=== PATIENT | male | born 1970 | race Caucasian/White ===

== ENCOUNTER 2016-11-20 17:09 | Inpatient (IN) | payer BC ==
--- NOTE | ~2016-11-20 | CN ---
Consultation Report [place] [place]. [address] NAME: NAVEEN LEVINE : 74 STATUS : ADM IN PAT#: [id number] AGE: 46 ADM/REG DATE : 11/20/16 MR#: [id number] REPORT SERV DATE: 11/22/16 DICTATED BY: NOLBERTO MASSEY DATE: 11/22/16 REPORT STATUS : Draft TRANSCRIBED BY: MODL DATE: 11/22/16 CONSULTATION DATE OF CONSULTATION: 11/22/2016 REASON FOR CONSULTATION: Blood sugar management. HISTORY OF PRESENT ILLNESS: Mr. Levine is a 46-year-old male, here for myocardial infarction, CHF, and arrhythmia. He has no known previous history of diabetes, although he does have diabetes in the family, specifically his father. The patient is noted to have blood sugars in excess of 300 on multiple draws here. There is no A1c available yet. He has been treated with sliding scale. Blood sugars continue to remain elevated. He is, otherwise, without complaints. PAST MEDICAL HISTORY: As covered above. PAST SURGICAL HISTORY: Not obtained. CURRENT MEDICATIONS: Reviewed in his chart. ALLERGIES: NONE. FAMILY HISTORY: Father with diabetes. SOCIAL HISTORY: Not obtained. REVIEW OF SYSTEMS: He is currently not having chest pain, palpitations, shortness of breath, nausea, or vomiting. PHYSICAL EXAMINATION: VITAL SIGNS: BP is 95/57, pulse is 104, saturation 96%, temperature is 98.8. GENERAL: He is awake, alert, oriented, in no acute distress. HEENT: Normocephalic, atraumatic. Sclerae are nonicteric. NECK: Supple. HEART: Regular rate and rhythm. LUNGS: Show good breath sounds bilaterally. ABDOMEN: Nontender and nondistended. NEUROLOGIC: Grossly nonfocal. LABORATORY DATA: Sodium 131, potassium 3.5, chloride 97, CO2 of 20, BUN and creatinine of 28 and 1.38, glucose is 334. White count 14.2, hemoglobin and hematocrit 15 and 43, platelets are 188. Consultation Report [address] [place]. [address] NAME: NAVEEN LEVINE : 74 STATUS : ADM IN PAT#: [id number] AGE: 46 ADM/REG DATE : 11/20/16 MR#: [id number] REPORT SERV DATE: 11/22/16 DICTATED BY: NOLBERTO MASSEY DATE: 11/22/16 REPORT STATUS : Draft TRANSCRIBED BY: VINITA DATE: 11/22/16 ASSESSMENT: Diabetes mellitus. PLAN: We will start long-acting insulin in addition to a sliding scale. We will ask the nurse educator to see him. We will draw an A1c. Change his diet to 2000 ADA. We will continue to follow. Thank you for the consultation. ISAIAHF/VINITA Nolberto Massey M.D. / [id number] CC: Chase Huynh III, M.D., [facility], [facility]
--- NOTE | ~2016-11-20 | HP ---
History And Physical [facility] [address] [place]. [address] NAME: ADEOLA LEVINE : 74 STATUS : ADM IN PAT#: [id number] AGE: 46 ADM/REG DATE : 11/20/16 MR#: [id number] REPORT SERV DATE: 11/22/16 DICTATED BY: DEBORAH HUYNH III DATE: 11/22/16 REPORT STATUS : Draft TRANSCRIBED BY: VINITA DATE: 11/22/16 DATE OF ADMISSION: 11/20/2016 HISTORY OF PRESENT ILLNESS: Mr. Adeola Levine is a 46-year-old white male from [place], [place] admitted to [facility] for treatment of an acute anterolateral ST segment elevation myocardial infarction-acute coronary syndrome. The patient was told that he had a cardiac murmur in the 8th grade. The patient was evaluated by Dr. Pearson at [facility]. The patient was told that he had a bicuspid aortic valve. The patient did well until approximately three weeks prior to this admission. At that time, the patient had the onset of dull "burning "substernal and epigastric pain without radiation. The patient noted an increase in the frequency of his pain until approximately 12 hours prior to admission. At that time, the patient's chest pain became constant. The patient's chest pain was accompanied by dyspnea, diaphoresis, and occasional nausea. The patient denied any associated vomiting. The patient's chest pain was exacerbated by emotional upset. The patient denied relation to exertion, respiration, and oral intake. The patient stated that his chest pain was partially relieved by sitting up and naproxen. The patient denied relief with antacids. The patient denied trying sublingual nitroglycerin or a heating pad. The patient has no history of migraine headaches or symptoms suggestive of Raynaud's phenomenon. The patient was subsequently seen by the emergency medical service. A 12-lead electrocardiogram demonstrated findings consistent with an acute anterolateral ST segment elevation myocardial infarction. The patient was subsequently admitted for emergent cardiac catheterization and consideration of revascularization. The patient denied dyspnea on exertion, orthopnea, paroxysmal nocturnal dyspnea, trepopnea, platypnea, sacral edema, pedal edema, palpitations, and syncope. The patient has no history of rheumatic fever. The patient denied symptoms suggestive of hip claudication. The patient's documented coronary artery disease risk factors include obesity and diabetes mellitus. PAST MEDICAL HISTORY: 1. Obesity. 2. Type II diabetes mellitus. 3. Asthma. OPERATIVE PROCEDURES: None. ALLERGIES: NONE. MEDICATIONS: None. FAMILY HISTORY: Positive for hypertension, myocardial infarction, diabetes mellitus, cancer, and arthritis. Negative for stroke, seizures, kidney disease, liver disease, anemia, and mental illness. SOCIAL HISTORY: The patient denied any history of tobacco use. The patient discontinued History And Physical [address] [address] NAME: ADEOLA LEVINE : 74 STATUS : ADM IN PAT#: [id number] AGE: 46 ADM/REG DATE : 11/20/16 MR#: [id number] REPORT SERV DATE: 11/22/16 DICTATED BY: DEBORAH HUYNH III DATE: 11/22/16 REPORT STATUS : Draft TRANSCRIBED BY: VINITA DATE: 11/22/16 alcohol use approximately 10 years prior to this admission. PHYSICAL EXAMINATION: GENERAL: Physical examination demonstrated an alert, diaphoretic, obese middle-aged white male, in no acute distress. VITAL SIGNS: Demonstrated a temperature of 98.5 orally, respiratory rate of 28 breaths per minute, and a blood pressure of 112/80 mmHg with a heart rate of 105 beats per minute. SKIN: Warm and moist. NECK: Supple and nontender. There was full range of motion without appreciable lymphadenopathy or thyromegaly. There was no jugular venous distention at 90 degrees. There were no carotid bruits. BACK: Examination of the back demonstrated no spinal or costovertebral angle tenderness. CHEST: Examination of the chest demonstrated bibasilar inspiratory crackles. There were no rhonchi, wheezes, or pleural rubs. There was symmetrical expansion of the chest. There was no use of the accessary muscles for respiration. CARDIAC: Cardiac examination demonstrated a nonpalpable apical impulse. There was a tachycardic rhythm and rate. There was no appreciable murmur, rub, gallop, or mid systolic click. There were no thrills or heaves. There was no appreciable hepatojugular reflux. ABDOMEN: Examination of the abdomen demonstrated that it was obese, soft, and protuberant. There was no appreciable hepatosplenomegaly or masses. Bowel sounds were intact. There were no abdominal or femoral bruits. EXTREMITIES: Examination of the extremities demonstrated that they were symmetrical. There was full range of motion without cyanosis, clubbing, or edema. Pulses were 2+ and equal at the radial and dorsalis pedis arteries. The femoral pulses were 1+ and equal. The posterior tibial pulses were trace to nonpalpable. ASSESSMENT: Mr. Adeola Levine is a 46-year-old white male with two other risk factors for coronary atherosclerotic disease (i.e. obesity, diabetes mellitus) and a known bicuspid aortic valve; who presents with an acute anterolateral ST segment elevation myocardial infarction-acute coronary syndrome approximately 12 hours after symptom onset. The patient is admitted for emergent cardiac catheterization and consideration of revascularization. Options, potential risks, and benefits of the procedure were discussed with the patient. The patient accepted these risks and wished to proceed. GERHARD/VINITA Deborah Huynh III, M.D., [facility] / [id number] CC: Deborah Huynh III, M.D., [facility]
--- NOTE | ~2016-11-20 | DS ---
Discharge Summary [facility] [address] [place]. [address] NAME: NAVEEN LEVINE : 74 STATUS : DIS IN PAT#: [id number] AGE: 46 ADM/REG DATE : 11/20/16 MR#: [id number] REPORT SERV DATE: 12/02/16 DICTATED BY: DEBORAH HUYNH III DATE: 12/01/16 REPORT STATUS : Draft TRANSCRIBED BY: VINITA DATE: 12/01/16 Data Collection from hospitalization DISCHARGE DIAGNOSES: 1. Acute anterolateral ST-elevation myocardial infarction. 2. Three-vessel coronary artery disease. 3. Ischemic cardiomyopathy. 4. New-onset atrial fibrillation - resolved. 5. Bicuspid aortic valve. 6. Type 2 diabetes. 7. Obesity. 8. Asthma. CONSULTATIONS: Gabe Bella M.D. PROCEDURES PERFORMED: Cardiac catheterization and percutaneous coronary intervention, 11/20/2016. DISCHARGE MEDICATIONS: Cordarone 200 mg twice a day, Eliquis 5 mg twice a day, aspirin 81 mg daily, Lipitor 80 mg at bedtime, Advil 200 mg daily as needed, NovoLog injection insulin 10 units subcutaneously before meals, Levemir FlexPen 30 units subcutaneously at bedtime, Prinivil 40 mg daily, Glucophage 500 mg with breakfast and supper, Toprol-XL 200 mg daily, Aleve 440 mg daily as needed, nitroglycerin 0.4 mg sublingually as needed, Aldactone 25 mg daily, and Brilinta 90 mg twice a day. CONDITION AT DISCHARGE: Stable. DISPOSITION: The patient was discharged home on a 2000-calorie diabetic/cardiac diet with activities as instructed. He will follow up with me two weeks following discharge. He was to establish a primary care physician as soon as possible. He will need prompt follow up regarding his diabetes. HOSPITAL COURSE: This is a 46-year-old man who presented to [facility] with acute anterolateral ST-segment elevation myocardial infarction - acute coronary syndrome. The patient was told that he had a cardiac murmur in the 8th grade. He had been evaluated by Dr. Obrien at [facility]. The patient was told that he had a bicuspid aortic valve. The patient did well until approximately three weeks prior to admission. At that time, he had the onset of a dull burning substernal and epigastric pain without radiation. He noted an increase in the frequency of his pain until approximately 12 hours prior to admission. At that time, his chest pain became constant. His chest pain was accompanied by dyspnea, diaphoresis, and occasional nausea. He denied any associated vomiting. His chest pain was exacerbated by emotional upset. He denies any relation to exertion, respiration, or oral intake. He said that his chest pain was partially relieved by sitting up and with naproxen. He denied any relief with antacids. He denied trying sublingual nitroglycerin or heating pad. He was subsequently seen by the emergency medical services. A 12-lead electrocardiogram demonstrated findings consistent with acute anterolateral ST-segment elevation myocardial infarction. It was felt that he would need to undergo emergent cardiac catheterization and possible revascularization. He was admitted to the hospital at this Discharge [address] [address] NAME: NAVEEN LEVINE : 74 STATUS : DIS IN PAT#: [id number] AGE: 46 ADM/REG DATE : 11/20/16 MR#: [id number] REPORT SERV DATE: 12/02/16 DICTATED BY: DEBORAH HUYNH III DATE: 12/01/16 REPORT STATUS : Draft TRANSCRIBED BY: VINITA DATE: 12/01/16 time for further evaluation and treatment. Upon admission, he was taken to the cardiac labor crew supervisor where he underwent the above-mentioned procedure. He tolerated this well, and there were no complications. The following day, he had some chest soreness. He had no palpitations or dyspnea. Metoprolol was increased. Sliding scale insulin was increased to level 3. IV diltiazem was being given as per protocol. Echocardiogram was requested. He had the new onset of atrial fibrillation with rapid ventricular response. An echocardiogram was performed. On the , he was seen by Dr. Gabe Bella regarding blood sugar management. The patient has no known previous history of diabetes. He does have diabetes in his family, specifically his ulcer. He has been noted to have blood sugars in excess of 300 on multiple draws here. Hemoglobin A1c was going to be obtained. He had been treated with sliding scale insulin. His blood sugars continue to remain elevated. White count was 14.2. We were going to start long-acting insulin in addition to sliding scale. We were going to ask the associate financial advisor to see him. He is going to be placed on a 2000-calorie diabetic diet. On 11/23/2016, he had no chest pain, palpitations, or dyspnea. He was in a sinus rhythm at this time. Amiodarone was adjusted. He was transferred to telemetry. His new onset of atrial fibrillation had resolved. Discharge planning was performed. On 11/24/2016, he was feeling okay. He had no new complaints. He was eating well. Insulin was adjusted. Metformin was added. Eliquis was being provided. He was in a sinus rhythm. He had no dyspnea, palpitations, or chest pain. A Life Vest was going to be requested. He underwent diabetes education. Discharge instructions were given. Due to his improved and stable condition, he was discharged home with the above-stated instructions. Information collected by: Melita Mccoy I submit the above information as my discharge summary. TG/MODL Deborah Huynh III, M.D., [facility], [facility] / [id number] CC: Deborah Huynh III, M.D., [facility]
--- NOTE | ~2016-11-20 | OP ---
Record Of Operation [facility] [address] [place]. [address] NAME: ADEOLA LEVINE : 74 STATUS : DIS IN PAT#: [id number] AGE: 46 ADM/REG DATE : 11/20/16 MR#: [id number] REPORT SERV DATE: 12/03/16 DICTATED BY: DEBORAH HUYNH III DATE: 12/03/16 REPORT STATUS : Draft TRANSCRIBED BY: MODL DATE: 12/03/16 DATE OF PROCEDURE: 11/20/2016 PROCEDURAL FACILITY SECURITY OFFICER: Dr. Deborah Huynh. INDICATION: Mr. Adeola Levine is a 46-year-old white male with three other risk factors for coronary atherosclerotic disease (i.e., obesity, dyslipidemia, diabetes mellitus) and a known bicuspid aortic valve; who presented with an acute anterolateral ST-segment elevation myocardial infarction-acute coronary syndrome approximately 12 hours after symptom onset. The patient was referred for emergent cardiac catheterization and consideration of revascularization. Options, potential risks and benefits of the procedure were discussed with the patient. The patient accepted these risks and wished to proceed. PROCEDURES: 1. Left heart catheterization. 2. Left ventriculogram. 3. Left and right coronary angiograms. 4. Percutaneous transluminal coronary angioplasty with implantation of a 3.5 mm, 24 mm length [employer] Synergy EES in the mid portion of the left anterior descending coronary artery. 5. Limited right iliofemoral angiogram. CONTRAST: Iopamidol 250 mL. MEDICATIONS: 1. Midazolam 2 mg intravenously, in divided doses. 2. Sublimaze 100 mcg intravenously, in divided doses. 3. Heparin 4000 internation units intravenously. 4. Bivalirudin with a loading dose of 0.75 mg/kg, followed by standard intravenous infusion at 1.75 mg/kg per hour. 5. Regular insulin 5 units intravenously. 6. Labetalol 40 mg intravenously. 7. Ticagrelor 180 mg orally. EQUIPMENT: 1. 4-Kosovan Cook micropuncture with stiffened cannula (RFA). 2. 0.035 inch PTFE coated, 150 cm, 3 mm J Pentalum Technologiesald guidewire. 3. 6-Kosovan, 11 cm Cordis Alyse MS sheath. 4. 6-Kosovan, 100 cm #4 curve left coronary artery Samira catheter. 5. 6-Kosovan, 100 cm #4 curve right coronary artery Samira catheter. 6. 6-Kosovan XB LAD #4 Cordis [place] Brite-tip guiding catheter. 7. 0.014 inch Hi-Torque floppy, 190 cm, moderate support Barr Whisper steerable guidewire. 8. 3.5 mm, 15 mm length [employer] Emerge MR balloon dilatation catheter (14 atmospheres for a duration of 20 seconds). 9. 3.5 mm, 24 mm length [employer] Synergy MR stent deployment system (20 Record Of Operation [place] [id number] [place]. [address] NAME: ADEOLA LEVINE : 74 STATUS : DIS IN PAT#: [id number] AGE: 46 ADM/REG DATE : 11/20/16 MR#: [id number] REPORT SERV DATE: 12/03/16 DICTATED BY: DEBORAH HUYNH III DATE: 12/03/16 REPORT STATUS : Draft TRANSCRIBED BY: MODPamela DATE: 12/03/16 atmospheres for a duration of 60 seconds). 10.6-Kosovan #4 curve right coronary artery Samira Cordis [place] Brite-tip guiding catheter with side holes. 11.6-Kosovan, 110 cm pigtail-145 catheter (45 mL at 13 mL per second). 12.6-Kosovan Barr Perclose ProGlide vascular closure device. COMPLICATIONS: None. RADIATION DOSE: 2062 mGy. ESTIMATED BLOOD LOSS: 50 mL. HEMODYNAMIC DATA: Prior to left ventriculography, the central aortic pressure was 135/100 mmHg. The left ventricular pressure was 135/38 mmHg. ANGIOGRAPHIC DATA: Single plane 30-degree VALDERRAMA left ventriculography demonstrated that the left ventricle was moderate to severely enlarged. There was anterolateral akinesis, apical akinesis to dyskinesis, and distal diaphragmatic akinesis. Global left ventricular systolic function was moderate to severely reduced. There was no mitral regurgitation. The left main coronary artery was a large caliber, long, normal vessel. The left main coronary artery bifurcated into a large caliber left anterior descending and a large caliber, dominant left circumflex coronary arteries. The left anterior descending coronary artery gave rise to one major septal throw out clerk and one small to medium caliber diagonal branch, before being totally occluded in its midportion. The left anterior descending coronary artery was diffusely irregular. There was a radiolucent, irregular 25% to 40% stenosis involving the origin of the diagonal branch from the proximal portion of the left anterior descending coronary artery. The left circumflex coronary artery was a large caliber, dominant vessel. The left circumflex coronary artery gave rise to a small caliber first obtuse marginal branch, medium caliber second obtuse marginal branch, medium to large caliber third obtuse marginal branch, large caliber first posterolateral segment branch, small to medium caliber second posterolateral segment branch, and a medium caliber posterior descending coronary artery. The left circumflex coronary artery was diffusely irregular. There was an eccentric 50% stenosis involving the distal portion of the left circumflex coronary artery, just distal to the origin of the third obtuse marginal branch. There was a long, irregular 50% to 75% stenosis involving the distal portion of the left circumflex coronary artery, at the origins of the second posterolateral segment branch and posterior descending coronary arteries. The remainder of the left circumflex coronary artery was free of angiographically significant obstructive epicardial coronary artery disease. The right coronary artery was a small caliber, nondominant vessel. The right coronary artery gave rise to a conus branch, sinoatrial branch, small caliber first right ventricular branch, small caliber second right ventricular branch, and a medium caliber acute marginal branch, before terminating prior to the crux. The right coronary artery was diffusely Record Of Operation [address] [address] NAME: ADEOLA LEVINE : 74 STATUS : DIS IN PAT#: [id number] AGE: 46 ADM/REG DATE : 11/20/16 MR#: [id number] REPORT SERV DATE: 12/03/16 DICTATED BY: DEBORAH HUYNH III DATE: 12/03/16 REPORT STATUS : Draft TRANSCRIBED BY: VINITA DATE: 12/03/16 irregular. There was an irregular, radiolucent 50% stenosis involving the proximal portion of the right coronary artery, at the origin of the second right ventricular branch. There was a radiolucent, concentric 90% stenosis involving the mid portion of the right coronary artery, just proximal to the origin of the acute marginal branch. The remainder of the right coronary artery was free of angiographically significant obstructive epicardial coronary artery disease. Following balloon dilatation and implantation of a 3.5 mm, 24 mm length [employer] Synergy EES in the mid portion of the left anterior descending coronary artery, selective injections of the left coronary artery demonstrated reduction in the stenosis to approximately 0%. There was no intraluminal radiolucency or irregularity. There was ULISSES grade III perfusion of the distal vessel. Limited right iliofemoral angiography demonstrated luminal irregularities of the distal external iliac and common femoral arteries. The sheath insertion site was located in the common femoral artery. PATIENT DISPOSITION: Coronary Care Unit. CONCLUSIONS: 1. Anterolateral akinesis, apical akinesis to dyskinesis, and distal diaphragmatic akinesis; with a moderate to severe reduction in global left ventricular systolic function. 2. Elevated left ventricular end-diastolic pressure. 3. Angiographically significant three-vessel coronary artery disease, involving the mid portion of the left anterior descending, distal portion of the left circumflex and proximal portion of the right coronary arteries. 4. Left dominant coronary anatomy. 5. Successful percutaneous transluminal coronary angioplasty with implantation of a 3.5 mm, 24 mm length [employer] Synergy EES in the mid portion of the left anterior descending coronary artery, with reduction in the stenosis to approximately 0% and ULISSES grade III perfusion of the distal vessel. RECOMMENDATIONS: Aspirin for life, ticagrelor for 12 months, metoprolol, ramipril, consider eplerenone, high-intensity atorvastatin, echocardiogram, consider LifeVest and staged PCI of the distal portion of the left circumflex coronary artery. /VINITA Deborah Huynh III, M.D., [facility] / [id number] CC: Record Of Operation [address] [address] NAME: ADEOLA LEVINE : 74 STATUS : DIS IN PAT#: [id number] AGE: 46 ADM/REG DATE : 11/20/16 MR#: [id number] REPORT SERV DATE: 12/03/16 DICTATED BY: DEBORAH HUYNH III DATE: 12/03/16 REPORT STATUS : Draft TRANSCRIBED BY: MODL DATE: 12/03/16 Deborah Huynh III, M.D., [facility]
[2016-11-20 18:07] LABS: BASOPHILS 0.2 %; BASOPHILS ABSOLUTE 0.02 10/3/uL (0.0-0.16); EOSINOPHILS 0.1 %; EOSINOPHILS ABSOLUTE 0.01 10/3/uL (0.0-0.53); HEMATOCRIT 45.2 % (40.0-51.0); HEMOGLOBIN 16.2 g/dL (13.6-17.8); IMMATURE GRANULOCYTES 0.3 %; IMMATURE GRANULOCYTES ABSOLUTE 0.03 10/3/uL (0.0-0.11); LYMPHOCYTES 15.1 %; LYMPHOCYTES ABSOLUTE 1.81 10/3/uL (0.67-4.30); MEAN CORPUS HGB CONC 35.8 g/dL (32.0-36.0); MEAN CORPUSCULAR HEMOGLOB 29.5 pg (26.0-34.0); MEAN CORPUSCULAR VOLUME 82.3 fL (80-100); MEAN PLATELET VOLUME 11.3 fL (9.2-13.0); MONOCYTES 7.9 %; MONOCYTES ABSOLUTE 0.95 10/3/uL (0.21-1.20); NEUTROPHILS 76.4 %; NEUTROPHILS ABSOLUTE 9.18 10/3/uL (2.02-8.40); PLATELET COUNT 222 10/3/uL (150-400); RBC DISTRIBUTION WIDTH 12.8 % (12.0-16.0); RED CELL COUNT 5.49 10/6/uL (4.7-6.1)
[2016-11-20 18:08] LABS: MANUAL DIFF NO %
[2016-11-20 18:18] LABS: INTERNATIONAL NORMAL RATI 1.1 UNITS (-); PROTIME (NOT ORD) 14.2 SEC (12.0-14.5)
[2016-11-20 18:19] LABS: PARTIAL THROMBO TIME 105.2 SEC (22.5-37.2)
[2016-11-20 18:23] LABS: BUN (BLOOD UREA NITROGEN) 10 MG/DL (6-23); CHLORIDE, SERUM 98 MMOL/L (96-112); CO2 (CARBON DIOXIDE) 19 MMOL/L (24-34); GFR AFRICAN AMERICAN 94 ML/MIN (>=60); GFR NON AFRICAN AMERICAN 81 ML/MIN (>=60); SODIUM, SERUM 133 MMOL/L (135-148)
[2016-11-20 18:26] LABS: CHEST PAIN PROFILE TAT 0 Hrs 27 Mins; GLUCOSE, SERUM 408 MG/DL (60-99); POTASSIUM, SERUM 3.5 MMOL/L (3.5-5.3); TROPONIN I 9.32 NG/ML (<0.05)
[2016-11-20] MEDS ORDERED: ALEVE220 MG PO (20:05)
[2016-11-20] MEDS ORDERED: ADVIL PO (20:05)
[2016-11-20 20:34] LABS: BASOPHILS 0.2 %; BASOPHILS ABSOLUTE 0.03 10/3/uL (0.0-0.16); EOSINOPHILS 0.1 %; EOSINOPHILS ABSOLUTE 0.01 10/3/uL (0.0-0.53); HEMATOCRIT 46.1 % (40.0-51.0); HEMOGLOBIN 16.3 g/dL (13.6-17.8); IMMATURE GRANULOCYTES 0.2 %; IMMATURE GRANULOCYTES ABSOLUTE 0.04 10/3/uL (0.0-0.11); LYMPHOCYTES 12.8 %; MEAN CORPUS HGB CONC 35.4 g/dL (32.0-36.0); MEAN CORPUSCULAR HEMOGLOB 29.3 pg (26.0-34.0); MEAN CORPUSCULAR VOLUME 82.9 fL (80-100); MEAN PLATELET VOLUME 11.3 fL (9.2-13.0); MONOCYTES 8.2 %; MONOCYTES ABSOLUTE 1.35 10/3/uL (0.21-1.20); NEUTROPHILS 78.5 %; NEUTROPHILS ABSOLUTE 12.86 10/3/uL (2.02-8.40); PLATELET COUNT 248 10/3/uL (150-400); RBC DISTRIBUTION WIDTH 12.9 % (12.0-16.0); RED CELL COUNT 5.56 10/6/uL (4.7-6.1); WHITE BLOOD CELLS 16.4 10/3/uL (4.5-10.5)
[2016-11-20 20:36] LABS: MANUAL DIFF NO %
[2016-11-20 23:21] LABS: CKMB INDEX (NOT ORD) 4.2
[2016-11-21 04:10] LABS: BASOPHILS 0.1 %; BASOPHILS ABSOLUTE 0.01 10/3/uL (0.0-0.16); EOSINOPHILS 0.1 %; EOSINOPHILS ABSOLUTE 0.01 10/3/uL (0.0-0.53); HEMATOCRIT 46.5 % (40.0-51.0); IMMATURE GRANULOCYTES 0.3 %; IMMATURE GRANULOCYTES ABSOLUTE 0.04 10/3/uL (0.0-0.11); LYMPHOCYTES 9.8 %; LYMPHOCYTES ABSOLUTE 1.46 10/3/uL (0.67-4.30); MEAN CORPUS HGB CONC 34.4 g/dL (32.0-36.0); MEAN CORPUSCULAR HEMOGLOB 29.3 pg (26.0-34.0); MEAN PLATELET VOLUME 11.4 fL (9.2-13.0); MONOCYTES 9.4 %; NEUTROPHILS 80.3 %; NEUTROPHILS ABSOLUTE 11.91 10/3/uL (2.02-8.40); PLATELET COUNT 220 10/3/uL (150-400); RBC DISTRIBUTION WIDTH 13.1 % (12.0-16.0); RED CELL COUNT 5.47 10/6/uL (4.7-6.1); WHITE BLOOD CELLS 14.8 10/3/uL (4.5-10.5)
[2016-11-21 04:11] LABS: MANUAL DIFF NO %
[2016-11-21 05:08] LABS: BUN (BLOOD UREA NITROGEN) 8 MG/DL (6-23); CALCIUM, SERUM 8.9 MG/DL (8.5-10.4); CHLORIDE, SERUM 100 MMOL/L (96-112); CO2 (CARBON DIOXIDE) 21 MMOL/L (24-34); CREATININE 0.96 MG/DL (0.70-1.30); GFR AFRICAN AMERICAN 111 ML/MIN (>=60); GFR NON AFRICAN AMERICAN 96 ML/MIN (>=60); SODIUM, SERUM 136 MMOL/L (135-148)
[2016-11-21 05:15] LABS: CPK (IF ELEVATED MB BANDS) 3854 U/L (0-200); GLUCOSE, SERUM 297 MG/DL (60-99); POTASSIUM, SERUM 3.9 MMOL/L (3.5-5.3)
[2016-11-21 06:09] LABS: CKMB INDEX (NOT ORD) 3.7
[2016-11-21 14:00] LABS: CKMB INDEX (NOT ORD) 3.1
[2016-11-22 07:24] LABS: BASOPHILS 0.1 %; BASOPHILS ABSOLUTE 0.02 10/3/uL (0.0-0.16); EOSINOPHILS 0.1 %; EOSINOPHILS ABSOLUTE 0.01 10/3/uL (0.0-0.53); HEMATOCRIT 43.2 % (40.0-51.0); IMMATURE GRANULOCYTES 0.4 %; IMMATURE GRANULOCYTES ABSOLUTE 0.06 10/3/uL (0.0-0.11); LYMPHOCYTES 11.2 %; MEAN CORPUS HGB CONC 34.7 g/dL (32.0-36.0); MEAN CORPUSCULAR HEMOGLOB 30.4 pg (26.0-34.0); MEAN PLATELET VOLUME 11.1 fL (9.2-13.0); MONOCYTES ABSOLUTE 1.43 10/3/uL (0.21-1.20); NEUTROPHILS 78.2 %; NEUTROPHILS ABSOLUTE 11.12 10/3/uL (2.02-8.40); PLATELET COUNT 188 10/3/uL (150-400); RBC DISTRIBUTION WIDTH 13.2 % (12.0-16.0); RED CELL COUNT 4.93 10/6/uL (4.7-6.1); WHITE BLOOD CELLS 14.2 10/3/uL (4.5-10.5)
[2016-11-22 07:26] LABS: MANUAL DIFF NO %; MEAN CORPUSCULAR VOLUME 87.6 fL (80-100)
[2016-11-22 08:31] LABS: CALCIUM, SERUM 9.3 MG/DL (8.5-10.4); CHLORIDE, SERUM 97 MMOL/L (96-112); CO2 (CARBON DIOXIDE) 20 MMOL/L (24-34); CREATININE 1.38 MG/DL (0.70-1.30); GFR AFRICAN AMERICAN 72 ML/MIN (>=60); GFR NON AFRICAN AMERICAN 62 ML/MIN (>=60); GLUCOSE, SERUM 334 MG/DL (60-99); POTASSIUM, SERUM 3.5 MMOL/L (3.5-5.3); SODIUM, SERUM 131 MMOL/L (135-148)
[2016-11-22 08:32] LABS: BUN (BLOOD UREA NITROGEN) 28 MG/DL (6-23)
[2016-11-23 04:25] LABS: BASOPHILS 0.2 %; BASOPHILS ABSOLUTE 0.02 10/3/uL (0.0-0.16); EOSINOPHILS 0.3 %; EOSINOPHILS ABSOLUTE 0.04 10/3/uL (0.0-0.53); HEMOGLOBIN 14.4 g/dL (13.6-17.8); IMMATURE GRANULOCYTES 0.4 %; IMMATURE GRANULOCYTES ABSOLUTE 0.05 10/3/uL (0.0-0.11); LYMPHOCYTES 13.1 %; LYMPHOCYTES ABSOLUTE 1.68 10/3/uL (0.67-4.30); MEAN CORPUS HGB CONC 33.5 g/dL (32.0-36.0); MEAN CORPUSCULAR VOLUME 86.7 fL (80-100); MEAN PLATELET VOLUME 11.2 fL (9.2-13.0); MONOCYTES 8.8 %; MONOCYTES ABSOLUTE 1.13 10/3/uL (0.21-1.20); NEUTROPHILS 77.2 %; NEUTROPHILS ABSOLUTE 9.92 10/3/uL (2.02-8.40); PLATELET COUNT 238 10/3/uL (150-400); RBC DISTRIBUTION WIDTH 13.2 % (12.0-16.0); RED CELL COUNT 4.96 10/6/uL (4.7-6.1); WHITE BLOOD CELLS 12.8 10/3/uL (4.5-10.5)
[2016-11-23 04:26] LABS: MANUAL DIFF NO %
[2016-11-23 04:30] LABS: BUN (BLOOD UREA NITROGEN) 29 MG/DL (6-23); CALCIUM, SERUM 9.4 MG/DL (8.5-10.4); CHLORIDE, SERUM 98 MMOL/L (96-112); CO2 (CARBON DIOXIDE) 23 MMOL/L (24-34); CREATININE 0.95 MG/DL (0.70-1.30); GFR AFRICAN AMERICAN 112 ML/MIN (>=60); GFR NON AFRICAN AMERICAN 97 ML/MIN (>=60); SODIUM, SERUM 133 MMOL/L (135-148)
[2016-11-23 04:42] LABS: GLUCOSE, SERUM 240 MG/DL (60-99)
[2016-11-24 08:13] LABS: BASOPHILS 0.2 %; BASOPHILS ABSOLUTE 0.02 10/3/uL (0.0-0.16); EOSINOPHILS 1.3 %; EOSINOPHILS ABSOLUTE 0.15 10/3/uL (0.0-0.53); HEMATOCRIT 43.6 % (40.0-51.0); HEMOGLOBIN 14.6 g/dL (13.6-17.8); IMMATURE GRANULOCYTES 0.3 %; IMMATURE GRANULOCYTES ABSOLUTE 0.03 10/3/uL (0.0-0.11); LYMPHOCYTES 16.1 %; LYMPHOCYTES ABSOLUTE 1.79 10/3/uL (0.67-4.30); MEAN CORPUS HGB CONC 33.5 g/dL (32.0-36.0); MEAN CORPUSCULAR HEMOGLOB 28.9 pg (26.0-34.0); MEAN CORPUSCULAR VOLUME 86.3 fL (80-100); MEAN PLATELET VOLUME 10.8 fL (9.2-13.0); MONOCYTES 8.7 %; MONOCYTES ABSOLUTE 0.97 10/3/uL (0.21-1.20); NEUTROPHILS 73.4 %; NEUTROPHILS ABSOLUTE 8.16 10/3/uL (2.02-8.40); PLATELET COUNT 289 10/3/uL (150-400); RBC DISTRIBUTION WIDTH 13.1 % (12.0-16.0); RED CELL COUNT 5.05 10/6/uL (4.7-6.1); WHITE BLOOD CELLS 11.1 10/3/uL (4.5-10.5)
[2016-11-24 08:20] LABS: MANUAL DIFF NO %
[2016-11-24 08:28] LABS: BUN (BLOOD UREA NITROGEN) 28 MG/DL (6-23); CALCIUM, SERUM 9.1 MG/DL (8.5-10.4); CHLORIDE, SERUM 101 MMOL/L (96-112); CO2 (CARBON DIOXIDE) 24 MMOL/L (24-34); CREATININE 1.17 MG/DL (0.70-1.30); GFR AFRICAN AMERICAN 87 ML/MIN (>=60); GFR NON AFRICAN AMERICAN 75 ML/MIN (>=60); GLUCOSE, SERUM 236 MG/DL (60-99); POTASSIUM, SERUM 3.1 MMOL/L (3.5-5.3); SODIUM, SERUM 138 MMOL/L (135-148)
[2016-11-24 12:39] LABS: BUN (BLOOD UREA NITROGEN) 29 MG/DL (6-23); CALCIUM, SERUM 9.5 MG/DL (8.5-10.4); CHLORIDE, SERUM 102 MMOL/L (96-112); CO2 (CARBON DIOXIDE) 25 MMOL/L (24-34); CREATININE 1.28 MG/DL (0.70-1.30); GFR AFRICAN AMERICAN 78 ML/MIN (>=60); GFR NON AFRICAN AMERICAN 68 ML/MIN (>=60); GLUCOSE, SERUM 247 MG/DL (60-99); POTASSIUM, SERUM 3.6 MMOL/L (3.5-5.3); SODIUM, SERUM 137 MMOL/L (135-148)
[2016-11-24 15:06] LABS: CREATININE 0.7 MG/DL (0.70-1.30)
[2016-11-24] MEDS ORDERED: ELIQUIS 5 MG TAB5 MG PO (17:51)
[2016-11-24] MEDS ORDERED: ASAB PO (17:52)
[2016-11-24] MEDS ORDERED: LIPITOR40 PO (17:53)
[2016-11-24] MEDS ORDERED: CORDARONE PO (17:54)
[2016-11-24] MEDS ORDERED: NOVOLOG SC (17:55)
[2016-11-24] MEDS ORDERED: PRIN20 PO (17:57)
[2016-11-24] MEDS ORDERED: BRILINTA90 MG PO (17:58)
[2016-11-24] MEDS ORDERED: SPIRO25 PO (17:58)
[2016-11-24] MEDS ORDERED: GLUCPH PO (17:59)
[2016-11-24] MEDS ORDERED: LEVEMFLXPN SC (18:00)
[2016-11-24] MEDS ORDERED: TOPROL XL200 MG PO (18:01)
[2016-11-24] MEDS ORDERED: NTG150 SL (18:03)
[2016-12-02] MEDS ORDERED: LANTUSCART SC (11:27)
== END 2016-11-24 19:14 | disposition home or self-care (01) | DRG 247 ==
LOC: SSU2 17:09 → CCU 19:07 → 6NO 11-23 18:02
PROVIDERS: Internal Medicine Cardiovascular Disease
PROC: 027034Z Dilation of Coronary Artery, One Artery with Drug-eluting Intraluminal Device, Percutaneous Approach (ICD-10-PCS; principal; 2016-11-20)
PROC: 4A023N7 Measurement of Cardiac Sampling and Pressure, Left Heart, Percutaneous Approach (ICD-10-PCS; 2016-11-20)
PROC: B2111ZZ Fluoroscopy of Multiple Coronary Arteries using Low Osmolar Contrast (ICD-10-PCS; 2016-11-20)
PROC: B2151ZZ Fluoroscopy of Left Heart using Low Osmolar Contrast (ICD-10-PCS; 2016-11-20)
DX: I21.09 ST elevation (STEMI) myocardial infarction involving other coronary artery of anterior wall (principal); E87.1 Hypo-osmolality and hyponatremia; Q23.1 Congenital insufficiency of aortic valve; Z68.41 Body mass index [BMI] 40.0-44.9, adult; E11.9 Type 2 diabetes mellitus without complications; E66.9 Obesity, unspecified; E78.5 Hyperlipidemia, unspecified; I48.91 Unspecified atrial fibrillation; I25.5 Ischemic cardiomyopathy; E87.6 Hypokalemia; I25.10 Atherosclerotic heart disease of native coronary artery without angina pectoris; Z82.49 Family history of ischemic heart disease and other diseases of the circulatory system; Z83.3 Family history of diabetes mellitus
CPT/HCPCS: 71010; 80048; 82550; 82553; 82962; 83036; 83735; 84132; 84295; 84439; 84443; 84484; 85025; 85610; 85730; 93005; 93458; A9270-GY; C1725; C1760; C1769; C1874; C1887; C1894; C8929; C9606; J0282; J0583; J2250; J3010; Q9957; Q9967

== ENCOUNTER 2016-12-03 10:29 | Observation (INO) | payer BC ==
--- NOTE | ~2016-12-03 | OP ---
Record Of Operation [facility] [address] [place]. [address] NAME: ADEOLA LEVINE : 74 STATUS : DIS Thea PAT#: [id number] AGE: 46 ADM/REG DATE : 12/03/16 MR#: [id number] REPORT SERV DATE: 12/15/16 DICTATED BY: DEBORAH HUYNH III DATE: 12/15/16 REPORT STATUS : Draft TRANSCRIBED BY: MODL DATE: 12/15/16 DATE OF PROCEDURE: 12/03/2016 REFERRING PHYSICIAN: None. PROCEDURAL TOMATO GRADER: Deborah Huynh M.D., [facility], [facility]. ASSESSMENT: Mr. Adeola Levine is a 46-year-old white male with three other risk factors for coronary atherosclerotic disease (i.e., obesity, dyslipidemia, diabetes mellitus), known bicuspid aortic valve, status post anterolateral ST segment elevation myocardial infarction- acute coronary syndrome (11/20/2016), history of three-vessel coronary artery disease and status post PTCA with implantation of a 3.5 mm x 24 mm [employer] Synergy in the mid portion of the left anterior descending coronary artery (11/20/2016). The patient was referred for staged percutaneous coronary intervention with implantation of an Everolimus eluting stent in the distal portion of the left circumflex coronary artery. Options, potential risks and benefits of the procedure were discussed with the patient. The patient accepted these risks and wished to proceed. PROCEDURE DESCRIPTION: 1. Percutaneous transluminal coronary angioplasty with implantation of a 0.25 mm x 24 mm [employer] Synergy EES in the distal portion of the left circumflex coronary artery. 2. Limited right iliofemoral angiogram. CONTRAST: Iopamidol 170 mL. MEDICATIONS: 1. Midazolam 3 mg intravenously, in divided doses. 2. Sublimaze 150 mcg intravenously, in divided doses. 3. Heparin 8200 IU intravenously. 4. Ticagrelor 90 mg orally. EQUIPMENTS: 1. 4-[place] Cook micropuncture with stiffened cannula (RFA). 2. 0.035 inch PTFE coated, 150 cm, 3 mm J [employer] [place] guidewire. 3. 6-Croatian, 11 cm Cordis Alyse MS sheath. 4. 6-Croatian, XBC 3.5 Cordis [place] Brite-Tip guiding catheter. 5. 6-Croatian, XBC 4 Cordis [place] Brite-Tip guiding catheter. 6. 0.014 inch Hi-Torque floppy, 190 cm, extra-support Barr Whisper steerable guidewire. 7. 2.0 mm x 20 mm [employer] Emerge MR stent deployment system (14 atmospheres for a duration of 60 seconds). 8. 2.25 mm x 24 mm [employer] Synergy MR stent deployment system (18 atmospheres for a duration of 60 seconds). 9. 6-[place] Barr Perclose ProGlide vascular closure device. COMPLICATIONS: None. Record Of Operation [place] [id number] [facility] [place]. [address] NAME: ADEOLA LEVINE : 74 STATUS : DIS Thea PAT#: [id number] AGE: 46 ADM/REG DATE : 12/03/16 MR#: [id number] REPORT SERV DATE: 12/15/16 DICTATED BY: DEBORAH HUYNH III DATE: 12/15/16 REPORT STATUS : Draft TRANSCRIBED BY: VINITA DATE: 12/15/16 RADIATION DOSE: 2296 mGy. ESTIMATED BLOOD LOSS: 10 mL. I-STAT: 421 seconds. HEMODYNAMICS DATA: Prior to the injection of contrast, the central aortic pressure was 120/75 mmHg. ANGIOGRAPHIC DATA: Selective injections of the left coronary artery demonstrated a long, irregular, radiolucent 90% stenosis involving the distal portion of the dominant left circumflex coronary artery, at the origin of the second posterolateral segment branch and extending into the origin of the posterior descending coronary artery. Following balloon dilatation implantation of a 2.25 mm x 24 mm [employer] Synergy in the distal portion of the left circumflex coronary artery, selective injections of the left coronary artery demonstrated a reduction in the stenosis to approximately 0%. There was no intraluminal radiolucency or irregularity. There was ULISSES grade III perfusion of the distal vessel. Limited right iliofemoral angiography demonstrated luminal irregularities of the distal external iliac, and common femoral arteries. The sheath insertion site was located in the common femoral artery. PATIENT DISPOSITION: Coronary Short Stay Unit. CONCLUSION: Successful percutaneous transluminal coronary angioplasty with implantation of a 2.25 mm x 24 mm [employer] Synergy EES in the distal portion of the dominant left circumflex coronary artery, with reduction in the stenosis to approximately 0% and ULISSES grade III perfusion of the distal vessel. RECOMMENDATIONS: Aspirin for life, Ticagrelor for at least six months, metoprolol, ramipril, high-intensity atorvastatin, and cardiac rehabilitation program. GERHARD/MODL Deborah Huynh III, M.D., [facility] / [id number] CC: Deborah Huynh III, M.D., [facility]
[~2016-12-03 10:29] MED LIST: ADVIL PO; ALEVE220 MG PO; ASAB PO; BRILINTA90 MG PO; CORDARONE PO; ELIQUIS 5 MG TAB5 MG PO; GLUCPH PO; LANTUSCART SC; LEVEMFLXPN SC; LIPITOR40 PO; NOVOLOG SC; NTG150 SL; PRIN20 PO; SPIRO25 PO; TOPROL XL200 MG PO
[2016-12-03 11:26] LABS: BASOPHILS 0.3 %; BASOPHILS ABSOLUTE 0.03 10/3/uL (0.0-0.16); EOSINOPHILS 1.2 %; EOSINOPHILS ABSOLUTE 0.11 10/3/uL (0.0-0.53); HEMOGLOBIN 14.3 g/dL (13.6-17.8); IMMATURE GRANULOCYTES 0.5 %; IMMATURE GRANULOCYTES ABSOLUTE 0.05 10/3/uL (0.0-0.11); LYMPHOCYTES 29.8 %; LYMPHOCYTES ABSOLUTE 2.75 10/3/uL (0.67-4.30); MEAN CORPUS HGB CONC 33.3 g/dL (32.0-36.0); MEAN CORPUSCULAR HEMOGLOB 28.7 pg (26.0-34.0); MEAN CORPUSCULAR VOLUME 86.3 fL (80-100); MONOCYTES ABSOLUTE 0.55 10/3/uL (0.21-1.20); NEUTROPHILS 62.2 %; NEUTROPHILS ABSOLUTE 5.75 10/3/uL (2.02-8.40); RBC DISTRIBUTION WIDTH 12.8 % (12.0-16.0); RED CELL COUNT 4.98 10/6/uL (4.7-6.1); WHITE BLOOD CELLS 9.2 10/3/uL (4.5-10.5)
[2016-12-03 11:29] LABS: MANUAL DIFF NO %; PLATELET COUNT 398 10/3/uL (150-400)
[2016-12-03 11:43] LABS: BUN (BLOOD UREA NITROGEN) 14 MG/DL (6-23); CALCIUM, SERUM 8.6 MG/DL (8.5-10.4); CHLORIDE, SERUM 105 MMOL/L (96-112); CHOL/HDL RATIO(NOT ORDER) 3.4 (0-5); CHOLESTEROL 109 MG/DL (< 200); CO2 (CARBON DIOXIDE) 26 MMOL/L (24-34); CREATININE 0.99 MG/DL (0.70-1.30); GFR AFRICAN AMERICAN 107 ML/MIN (>=60); GFR NON AFRICAN AMERICAN 92 ML/MIN (>=60); GLUCOSE, SERUM 172 MG/DL (60-99); HDL CHOLESTEROL 32 MG/DL (> 39); LDL CHOLESTEROL 57 MG/DL (< 130); NON-HDL CHOLESTEROL 77 MG/DL (< 160); POTASSIUM, SERUM 3.8 MMOL/L (3.5-5.3); SODIUM, SERUM 141 MMOL/L (135-148); TRIGLYCERIDE 104 MG/DL (< 150)
[2016-12-03 16:28] LABS: CPK 57 U/L (0-200)
[2016-12-03 16:29] LABS: CK-MB 0.7 NG/ML
[2016-12-04 05:03] LABS: HEMATOCRIT 41.8 % (40.0-51.0); HEMOGLOBIN 14.1 g/dL (13.6-17.8)
[2016-12-04 05:04] LABS: BUN (BLOOD UREA NITROGEN) 11 MG/DL (6-23); CALCIUM, SERUM 8.4 MG/DL (8.5-10.4); CHLORIDE, SERUM 106 MMOL/L (96-112); CO2 (CARBON DIOXIDE) 24 MMOL/L (24-34); CPK 66 U/L (0-200); CREATININE 0.87 MG/DL (0.70-1.30); GFR AFRICAN AMERICAN 122 ML/MIN (>=60); GFR NON AFRICAN AMERICAN 105 ML/MIN (>=60); POTASSIUM, SERUM 3.6 MMOL/L (3.5-5.3); SODIUM, SERUM 141 MMOL/L (135-148)
[2016-12-04 05:08] LABS: CK-MB 1.7 NG/ML; GLUCOSE, SERUM 118 MG/DL (60-99); TROPONIN I 1.67 NG/ML (<0.05)
== END 2016-12-04 10:05 | disposition home or self-care (01) ==
LOC: CORLMH 10:29 → SSU1 10:39
PROVIDERS: Internal Medicine Cardiovascular Disease
DX: I21.09 ST elevation (STEMI) myocardial infarction involving other coronary artery of anterior wall (principal); I25.10 Atherosclerotic heart disease of native coronary artery without angina pectoris; E66.9 Obesity, unspecified; E11.9 Type 2 diabetes mellitus without complications; J45.909 Unspecified asthma, uncomplicated; I25.5 Ischemic cardiomyopathy; I48.91 Unspecified atrial fibrillation; Z82.49 Family history of ischemic heart disease and other diseases of the circulatory system; Z83.3 Family history of diabetes mellitus; Z82.61 Family history of arthritis; Z87.891 Personal history of nicotine dependence; Z79.82 Long term (current) use of aspirin; Z79.4 Long term (current) use of insulin; Z79.899 Other long term (current) drug therapy; Z98.890 Other specified postprocedural states
CPT/HCPCS: 80048; 80061; 82550; 82553; 82962; 84484; 85014; 85018; 85025; 85347; 93005; A9270-GY; C1725; C1760; C1769; C1874; C1887; C1894; C9600; G0378; J2250; J3010; Q9967